=== PATIENT | female | born 1930 | race Caucasian/White ===

== ENCOUNTER 2022-04-22 18:11 | Inpatient (IN) ==
--- NOTE | 2022-04-22 18:16 | Emergency Department Note ---
Impression & Plan Syncope, Fall, Dehydration ED Provider Note NAME: ROSA HERNANDEZ AGE: 89 SEX: F : 1930 ARRIVES VIA: Ambulance INFORMANT: Patient, ED PROVIDER(S): Braxton Murillo MD Chief Complaint: Fall HPI: Patient was seen earlier today due to concern for syncope. The patient does have a known history of dementia and syncope. Patient was reportedly at sabianism today was standing and had a sit down. Patient did have 2 brief syncopal events did receive some glucose by bystander in case her sugar had been low. Patient's BSG was normal. The patient had no current complaints at the time of being seen here today. The patient did have blood work completed and had cardiac enzyme testing. Patient's EKG shows frequent PVCs and bigeminy. Patient did receive IV fluids. Patient reportedly had a fall after using the bathroom. Patient did not have any syncope LOC or head strike. Patient does not take any blood thinning medications. ROS: See HPI for pertinent positives and negatives. A total of 10 systems were reviewed and otherwise negative. Past medical history: See below Surgical history: See below Social history: See below Physical Exam: GENERAL: NAD, wearing a mask, non-toxic. EYE EXAM: Normal conjunctiva. PERRL, no anisocoria and EOM's grossly intact w/o pain. NECK: Supple, no nuchal rigidity, no adenopathy, non-tender. No signs of meningismus. FROM of the neck with good chin to chest and neck extension. No stridor. LUNGS: Clear to auscultation. Normal chest wall mechanics. HEART: NSR, no MRG. ABDOMEN: Abdomen soft, non-tender, normo-active bowel sounds, no masses, no rebound or guarding. BACK: No CVA TTP. SKIN: No rashes and no bruising. UPPER EXTREMITIES: Upper extremities are grossly normal. No TTP or obvious deformity. LOWER EXTREMITIES: Grossly normal, no edema. No TTP or obvious deformity. NEURO EXAM: A&O x3, cranial nerves II-XII grossly intact, normal speech, moves all 4 extremities. Differential diagnoses: Vasovagal event, dehydration, infection, hypoglycemia, electrolyte abnormalities, cardiac sources, intracerebral event, pulmonary embolism, seizure, toxicologic, neurologic, as well as other pathologies. Course: Patient was seen and evaluated the bedside. Full history physical exam was performed. EKG interpreted by me Sinus with occasional PVCs. Rate of 65, normal QRS, normal axis. No obvious ST elevations. Imaging Studies: See Below Cardiac monitoring: An order was placed for continuous cardiac monitoring. The monitor shows a rate of 67 with sinus rhythm. MDM: Patient was seen due to concern for episode of syncope. I did call and speak with the patient's daughter Robson states that upon returning home she was feeling quite well eating a sandwich had gone to the bathroom and subsequently was staring and did not seem to be awake or alert for approximately 5 seconds in duration. No vomiting and no head strike. Given that the patient has had 3 episodes today believe the patient would benefit from inpatient treatments and telemetry. I did speak the on-call hospitalist Dr. Lizama and the patient was admitted to the medicine service. I did review the patient's prior blood work which was completed earlier today. The patient has normal white count H&H and platelet count. The patient's kidney function did show some mild prerenal azotemia but the BUN and creatinine were normal. Kidney function was grossly unremarkable with 2 negative troponins and urinalysis was negative in addition to COVID. Patient was ordered campus monitor IV fluids saline lock and pulse ox. Past Med/Surg History Medical History DM2 (diabetes mellitus, type 2) Hearing deficit HTN (hypertension) Neuropathy Sensorineural hearing loss (SNHL) of both ears Surgical History History of cholecystectomy History of dilation and curettage History of hysterectomy History of tonsillectomy Family History Son Hypertension Daughter Asthma Other No family history of adverse response to anesthesia No family history of bleeding disorder Social History Smoking Status: Never smoker Hx Alcohol Use: No Hx Substance Use: No Preferred Language: Colombian marital status: / Current Living Situation: Alone and Family current occupational status: retired Feels Safe at Home: Yes Allergies Allergies Allergy/AdvReac Type Severity Reaction Status Date / Time atorvastatin AdvReac Muscle Pain Verified 04/22/22 19:32 ezetimibe [From Zetia] AdvReac Muscle Pain Verified 04/22/22 19:33 sulfates Allergy Hives Uncoded 04/22/22 19:32 Home Meds Home Medications Medication Instructions Recorded Confirmed amlodipine 10 mg tablet 10 mg PO HS 03/13/22 04/22/22 aspirin 81 mg tablet,delayed 81 mg PO DAILY 03/13/22 04/22/22 release (Adult Low Dose Aspirin) benazepril 20 1 tab PO DAILY 03/13/22 04/22/22 mg-hydrochlorothiazide 12.5 mg tablet cetirizine 10 mg tablet (Zyrtec) 10 mg PO DAILY 03/13/22 04/22/22 gabapentin 100 mg capsule 100 mg PO QPM 03/13/22 04/22/22 glipizide 2.5 mg tablet, extended 2.5 mg PO DAILY 03/13/22 04/22/22 release 24 hr donepezil 5 mg tablet 5 mg PO DAILY 04/22/22 04/22/22 multivitamin with minerals-folic 1 tab PO DAILY 04/22/22 04/22/22 acid 200 mcg chewable tablet (Adult Multivitamin Gummies) Results & Data (ED) Vital Signs Vital Signs - 24 hr 04/22/22 17:50 04/22/22 19:03 04/22/22 18:41 Temperature 36.5 C Temperature Source Oral Pulse Rate 82 65 Pulse Rate [Brachial] 67 Pulse Rate from SpO2 Sensor Pulse Rhythm Regular Pulse Rhythm [Brachial] Regular Pulse Strength Normal Pulse Strength [Brachial] Normal Respiratory Rate 20 19 Respiratory Effort / Characteristics Non-Labored Spontaneous Non-Labored Spontaneous Respiratory Depth Normal Normal Respiratory Pattern Regular Blood Pressure 158/82 H Blood Pressure [Left Arm] 150/66 H Blood Pressure Mean 107 Blood Pressure Mean [Left Arm] 94 Pulse Oximetry 97 98 99 Oxygen Delivery Method Room Air Room Air Sepsis Recent Fever Within 48 Hours No Sepsis New/Unexplained Change in Mental Status No Sepsis Action Taken by Nursing No Action Required 04/22/22 18:41 04/22/22 18:50 04/22/22 19:00 Temperature Temperature Source Pulse Rate 67 66 Pulse Rate [Brachial] Pulse Rate from SpO2 Sensor 69 66 Pulse Rhythm Pulse Rhythm [Brachial] Pulse Strength Pulse Strength [Brachial] Respiratory Rate 16 14 Respiratory Effort / Characteristics Respiratory Depth Respiratory Pattern Blood Pressure 150/66 H Blood Pressure [Left Arm] Blood Pressure Mean 94 Blood Pressure Mean [Left Arm] Pulse Oximetry 99 99 Oxygen Delivery Method Sepsis Recent Fever Within 48 Hours Sepsis New/Unexplained Change in Mental Status Sepsis Action Taken by Nursing 04/22/22 19:00 04/22/22 19:10 04/22/22 19:20 Temperature Temperature Source Pulse Rate 67 69 82 Pulse Rate [Brachial] Pulse Rate from SpO2 Sensor 69 68 70 Pulse Rhythm Pulse Rhythm [Brachial] Pulse Strength Pulse Strength [Brachial] Respiratory Rate 16 21 18 Respiratory Effort / Characteristics Respiratory Depth Respiratory Pattern Blood Pressure Blood Pressure [Left Arm] Blood Pressure Mean Blood Pressure Mean [Left Arm] Pulse Oximetry 93 99 99 Oxygen Delivery Method Sepsis Recent Fever Within 48 Hours Sepsis New/Unexplained Change in Mental Status Sepsis Action Taken by Nursing 04/22/22 19:30 04/22/22 19:32 04/22/22 19:32 Temperature Temperature Source Pulse Rate 68 68 Pulse Rate [Brachial] Pulse Rate from SpO2 Sensor 35 L Pulse Rhythm Pulse Rhythm [Brachial] Pulse Strength Pulse Strength [Brachial] Respiratory Rate 23 17 Respiratory Effort / Characteristics Respiratory Depth Respiratory Pattern Blood Pressure 168/69 H Blood Pressure [Left Arm] Blood Pressure Mean 102 Blood Pressure Mean [Left Arm] Pulse Oximetry 98 Oxygen Delivery Method Sepsis Recent Fever Within 48 Hours Sepsis New/Unexplained Change in Mental Status Sepsis Action Taken by Nursing 04/22/22 19:40 04/22/22 19:50 04/22/22 20:00 Temperature Temperature Source Pulse Rate 66 64 Pulse Rate [Brachial] Pulse Rate from SpO2 Sensor 68 66 Pulse Rhythm Pulse Rhythm [Brachial] Pulse Strength Pulse Strength [Brachial] Respiratory Rate 19 13 Respiratory Effort / Characteristics Respiratory Depth Respiratory Pattern Blood Pressure 160/78 H Blood Pressure [Left Arm] Blood Pressure Mean 105 Blood Pressure Mean [Left Arm] Pulse Oximetry 99 98 Oxygen Delivery Method Sepsis Recent Fever Within 48 Hours Sepsis New/Unexplained Change in Mental Status Sepsis Action Taken by Nursing 04/22/22 20:00 04/22/22 20:10 04/22/22 20:20 Temperature Temperature Source Pulse Rate 64 69 72 Pulse Rate [Brachial] Pulse Rate from SpO2 Sensor 69 72 Pulse Rhythm Pulse Rhythm [Brachial] Pulse Strength Pulse Strength [Brachial] Respiratory Rate 20 17 16 Respiratory Effort / Characteristics Respiratory Depth Respiratory Pattern Blood Pressure Blood Pressure [Left Arm] Blood Pressure Mean Blood Pressure Mean [Left Arm] Pulse Oximetry 98 99 Oxygen Delivery Method Sepsis Recent Fever Within 48 Hours Sepsis New/Unexplained Change in Mental Status Sepsis Action Taken by Nursing 04/22/22 20:30 04/22/22 20:30 04/22/22 20:40 Temperature Temperature Source Pulse Rate 69 71 Pulse Rate [Brachial] Pulse Rate from SpO2 Sensor 58 L 73 Pulse Rhythm Pulse Rhythm [Brachial] Pulse Strength Pulse Strength [Brachial] Respiratory Rate 16 16 Respiratory Effort / Characteristics Respiratory Depth Respiratory Pattern Blood Pressure 162/82 H Blood Pressure [Left Arm] Blood Pressure Mean 108 Blood Pressure Mean [Left Arm] Pulse Oximetry 97 99 Oxygen Delivery Method Sepsis Recent Fever Within 48 Hours Sepsis New/Unexplained Change in Mental Status Sepsis Action Taken by Nursing 04/22/22 20:50 04/22/22 21:00 04/22/22 21:00 Temperature Temperature Source Pulse Rate 71 70 Pulse Rate [Brachial] Pulse Rate from SpO2 Sensor Pulse Rhythm Pulse Rhythm [Brachial] Pulse Strength Pulse Strength [Brachial] Respiratory Rate 18 21 Respiratory Effort / Characteristics Respiratory Depth Respiratory Pattern Blood Pressure 156/98 H Blood Pressure [Left Arm] Blood Pressure Mean 117 Blood Pressure Mean [Left Arm] Pulse Oximetry Oxygen Delivery Method Sepsis Recent Fever Within 48 Hours Sepsis New/Unexplained Change in Mental Status Sepsis Action Taken by Nursing 04/22/22 21:10 04/22/22 21:20 04/22/22 21:30 Temperature Temperature Source Pulse Rate 72 70 Pulse Rate [Brachial] Pulse Rate from SpO2 Sensor Pulse Rhythm Pulse Rhythm [Brachial] Pulse Strength Pulse Strength [Brachial] Respiratory Rate 23 20 Respiratory Effort / Characteristics Respiratory Depth Respiratory Pattern Blood Pressure 137/69 Blood Pressure [Left Arm] Blood Pressure Mean 91 Blood Pressure Mean [Left Arm] Pulse Oximetry Oxygen Delivery Method Sepsis Recent Fever Within 48 Hours Sepsis New/Unexplained Change in Mental Status Sepsis Action Taken by Nursing 04/22/22 21:30 04/22/22 21:40 Temperature Temperature Source Pulse Rate 69 65 Pulse Rate [Brachial] Pulse Rate from SpO2 Sensor Pulse Rhythm Pulse Rhythm [Brachial] Pulse Strength Pulse Strength [Brachial] Respiratory Rate 23 21 Respiratory Effort / Characteristics Respiratory Depth Respiratory Pattern Blood Pressure Blood Pressure [Left Arm] Blood Pressure Mean Blood Pressure Mean [Left Arm] Pulse Oximetry Oxygen Delivery Method Sepsis Recent Fever Within 48 Hours Sepsis New/Unexplained Change in Mental Status Sepsis Action Taken by Group Home Medications Current Medication List: was personally reviewed by me Laboratory Data Attestation: I reviewed the patient's lab results. I reviewed the blood work from earlier today as per the MDM. Administered Medications Discontinued Medications Sodium Chloride (Nss 1000ml) 1,000 mls @ 999 mls/hr IV .[id number] ONE Stop: 04/22/22 19:45 Last Infusion: 04/22/22 21:00 Dose: 0 mls/hr Documented By: Admin: 04/22/22 19:47 Dose: 999 mls/hr Documented By: YOLY Discharge Plan Visit Data Chief Complaint: Fall Stated Complaint: syncope ED Provider: Braxton Murillo Discharge Problem: Syncope, Fall, Dehydration Forms Stand Alone Forms: [facility] Prescriptions Prescriptions: No Action glipizide 2.5 mg tablet extended release 24 hr 2.5 mg PO DAILY aspirin [Adult Low Dose Aspirin] 81 mg tablet,delayed release (DR/EC) 81 mg PO DAILY cetirizine [Zyrtec] 10 mg tablet 10 mg PO DAILY benazepril-hydrochlorothiazide 20-12.5 mg tablet 1 tab PO DAILY gabapentin 100 mg capsule 100 mg PO QPM amlodipine 10 mg tablet 10 mg PO HS donepezil 5 mg tablet 5 mg PO DAILY Adult Multivitamin Gummies 200 mcg Tablet,Chewable 1 tab PO DAILY Referrals Referrals: Sandi Saxena MD [Primary Care Provider] -
[2022-04-22] MEDS ORDERED: SODIUM CHLORIDE 0.9% 1000ML 1,000 ML IV ONE (18:45)
--- NOTE | 2022-04-22 20:42 | History & Physical Report ---
Date of Service April 22, 2022 Assessment & Plan (1) Syncope: Plan: Recurrent events Rule out orthostasis, arrhythmia ? Secondary to new Aricept Rx for dementia ? autonomic neuropathy from DM (hemoglobin A1c noted to be 9.4 last November 2021) Rule out seizures given history of CVA lacunar infarct on CT as per records), cardiac pathology (history murmur as per records) hypertension, slightly elevated hyperlipidemia/statin intolerance, CVA, DM2 on oral medications, better controlled with recent outpatient hemoglobin A1c of 7.6 last February 2022 Impacted cerumen, left IBD, in remission OBS Medical telemetry Check orthostatic vitals TTE, EEG for recurrent syncope work-up Hold Aricept for now [Will request AM provider to contact patient's neurologist (Dr. Hughes) to to give patient update and seek disposition regarding Aricept Rx. Patient may need to be weaned off Aricept pending Neurology recommendations.) Basal bolus insulin, ISS BG goal 1 10-1 40, carb count coverage Ceruminolytic course for left ear followed by removal at PCPs office on follow- up DVT prophylaxis per Lovenox subcu Full code as per daughter/POA, Travis Irizarry. She requests updates from providers through [phone]. Text document was generated using [employer] voice recognition software. It may contain grammatical or spelling errors. Kindly contact undersigned for clarification of any documentation item in question. History of Present Illness Chief Complaint: Recurrent syncope Primary Care Provider: Sandi Saxena MD History obtained from patient, family, and records. Limited history from patient secondary to hearing impairment. Medical history significant for hypertension, hyperlipidemia/statin intolerance, CVA, DM2 on oral medications, ulcerative colitis as per records, dementia. Patient moved in with her daughter to live with her daughter in [place] from [place] last November 2021. According to daughter, patient has had recurrent syncopal events for about 10 years now. Nothing found on testing as per daughter. Last attack was a few years ago. Patient started on Aricept by [facility] cognitive and behavioral neurologist 2 weeks ago to slow cognitive decline from dementia. Daytime confusion noted shortly after starting medication. Neurologist updated by patient daughter via online communication. 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 Patient noted to be shaking and sweaty as per family. Patient eyes rolled backwards. No tongue biting or incontinence noted. Physicians present at the restorationist attended to patient. Blood sugar noted to be 100s upon arrival of EMS. Patient brought to ER for evaluation but subsequently discharged with negative work-up. Patient told to follow-up with PCP. Another syncopal event witnessed by daughter at home. No seizures or incontinence. Patient looked glassy eyed. Episode lasted about 5 seconds. Patient denies chest pain, shortness of breath, unusual headache symptoms upon regaining consciousness. Patient not hearing well as per daughter. Patient brought to the ER for evaluation. 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 Allergies Allergy/AdvReac Type Severity Reaction Status Date / Time atorvastatin AdvReac Muscle Pain Verified 04/22/22 19:32 ezetimibe [From Zetia] AdvReac Muscle Pain Verified 04/22/22 19:33 sulfates Allergy Hives Uncoded 04/22/22 19:32 Home Medications Medication Instructions Recorded Confirmed Type amlodipine 10 mg tablet 10 mg PO HS 03/13/22 04/22/22 History aspirin 81 mg tablet,delayed 81 mg PO DAILY 03/13/22 04/22/22 History release (Adult Low Dose Aspirin) benazepril 20 1 tab PO DAILY 03/13/22 04/22/22 History mg-hydrochlorothiazide 12.5 mg tablet cetirizine 10 mg tablet (Zyrtec) 10 mg PO DAILY 03/13/22 04/22/22 History gabapentin 100 mg capsule 100 mg PO QPM 03/13/22 04/22/22 History glipizide 2.5 mg tablet, extended 2.5 mg PO DAILY 03/13/22 04/22/22 History release 24 hr donepezil 5 mg tablet 5 mg PO DAILY 04/22/22 04/22/22 History multivitamin with minerals-folic 1 tab PO DAILY 04/22/22 04/22/22 History acid 200 mcg chewable tablet (Adult Multivitamin Gummies) Past Med/Surg History Medical History DM2 (diabetes mellitus, type 2) Hearing deficit HTN (hypertension) Neuropathy Sensorineural hearing loss (SNHL) of both ears Surgical History History of cholecystectomy History of dilation and curettage History of hysterectomy History of tonsillectomy Family History Son Hypertension Daughter Asthma Other No family history of adverse response to anesthesia No family history of bleeding disorder Social History Smoking Status: Never smoker Cigarettes Per Day: does not use; Second Hand Exposure: No; Do You Dip or Chew Tobacco: No; Tobacco Cessation Education Requested by Patient: No Hx Alcohol Use: No Hx Substance Use: No Preferred Language: Ethiopian Communication Ability: Effective Communication Ability Comment: patient is able to speak Ethiopian Sponge Diver Required: No Beliefs That Will Affect Care: Adventism marital status: / Current Living Situation: Family Current Living Situation Comment: lives with Travis peres current occupational status: retired Feels Safe at Home: Yes Safety Concerns: Feels Safe At This Time Assistive Devices: None Review of Systems Review of Systems: Could not be reliably obtained secondary to hearing impairment Physical Exam Physical Exam: GENERAL: Comfortable, oriented to place, hard of hearing, no respiratory distress SKIN: Normal color, warm HEENT: [place] palpebral conjunctivae, no ptosis, dry buccal mucosa; intact TM on right ear, impacted cerumen within left ear canal NECK : Supple, no tenderness CHEST : CTA, no tenderness HEART : RRR, no obvious murmurs ABDOMEN: Some distention, nontender EXTREMITIES : No LE swelling/tenderness, no other conspicuous deformities noted NEUROLOGIC : Oriented to place, no facial asymmetry, gait and stance not assessed Results & Data Results & Data ([facility]) Vital Signs (Past 12 Hours) Vital Signs Temp Pulse Pulse Resp BP BP Pulse Ox 04/22/22 18:41 65 99 04/22/22 19:03 67 19 150/66 H 98 04/22/22 17:50 36.5 C 82 20 158/82 H 97 O2 Del Method 04/22/22 18:41 04/22/22 19:03 Room Air 04/22/22 17:50 Room Air Laboratory Results 04/22/22 04/22/22 04/22/22 Range/Units 11:40 12:30 12:31 WBC 8.07 (4.8-10.8) K/ul RBC 4.77 (3.93-5.22) M/uL Hgb 14.0 (12.0-16.0) g/dl Hct 42.4 (34.1-44.9) % MCV 88.9 (80.0-100.0) fL MCH 29.4 (25.0-34.0) pg MCHC 33.0 (32.0-36.0) g/dL RDW Std Deviation 42.3 (36.4-46.3) fL RDW Coeff of Ebony 13.0 (11.5-14.5) % Plt Count 172 (130-400) K/uL MPV 9.3 L (9.4-12.3) fL Immature Gran % (Auto) 0.6 % Neut % (Auto) 73.5 % Lymph % (Auto) 18.3 % [place] % (Auto) 5.8 % Eos % (Auto) 1.4 % Baso % (Auto) 0.4 % Neut # (Auto) 5.93 (1.4-6.5) K/uL Lymph # (Auto) 1.48 (1.2-3.4) K/uL [place] # (Auto) 0.47 (0.24-0.82) K/uL Eos # (Auto) 0.11 (0-0.50) K/uL Baso # (Auto) 0.03 (0-0.2) K/uL Immature Gran # (Auto) 0.05 H (0.00-0.02) K/uL Sodium (136-145) mmol/L Potassium (3.5-5.1) mmol/L Chloride (98-107) mmol/L Carbon Dioxide (21-32) mmol/L Anion Gap (3-11) BUN (6-23) mg/dl Creatinine (0.6-1.2) mg/dl Est Cr Clr Drug Dosing ml/min Est GFR ( Amer) ml/min Est GFR (Non-Af Amer) ml/min BUN/Creatinine Ratio (10-20) Glucose (70-99(Fasting)) mg/dl POC Glucose 147 H (70-99) mg/dl Calcium (8.5-10.1) mg/dl Magnesium (1.7-2.4) mg/dl Total Bilirubin (0.2-1.0) mg/dl AST (13-39) U/L ALT (7-52) U/L Alkaline Phosphatase (34-104) U/L Troponin I High Sens (0-14) pg/ml Total Protein (6.0-8.3) gm/dl Albumin (3.4-5.0) gm/dl Globulin (2.5-4.0) gm/dl Albumin/Globulin Ratio (0.9-2) TSH (0.300-4.500) uIu/ml Prolactin ng/ml Urine Color Urine Appearance (Clear) Urine pH (4.5-7.5) Ur Specific [place] (1.000-1.030) Urine Protein (Negative) Urine Glucose (UA) (Negative) Urine Ketones (Negative) Urine Blood (Negative) Urine Nitrite (Negative) Urine Bilirubin (Negative) Urine Urobilinogen (Negative) Ur Leukocyte Esterase (Negative) SARS-CoV-2, RNA, NAAT NEGATIVE (NEGATIVE) 04/22/22 04/22/22 04/22/22 Range/Units 12:31 12:31 12:31 WBC (4.8-10.8) K/ul RBC (3.93-5.22) M/uL Hgb (12.0-16.0) g/dl Hct (34.1-44.9) % MCV (80.0-100.0) fL MCH (25.0-34.0) pg MCHC (32.0-36.0) g/dL RDW Std Deviation (36.4-46.3) fL RDW Coeff of Ebony (11.5-14.5) % Plt CountB (130-400) K/uL MPV (9.4-12.3) fL Immature Gran % (Auto) % Neut % (Auto) % Lymph % (Auto) % [place] % (Auto) % Eos % (Auto) B % Baso % (Auto) % Neut # (Auto) (1.4-6.5) K/uL Lymph # (Auto) (1.2-3.4) K/uL [place] # (Auto) (0.24-0.82) K/uL Eos # (Auto) (0-0.50) K/uL Baso # (Auto) (0-0.2) K/uL Immature Gran # (Auto) (0.00-0.02) K/uL Sodium 139 (136-145) mmol/L Potassium 4.0 (3.5-5.1) mmol/L Chloride 102 (98-107) mmol/L Carbon Dioxide 26 (21-32) mmol/L Anion Gap 11 (3-11) BUN 23 (6-23) mg/dl Creatinine 1.13 (0.6-1.2) mg/dl Est Cr Clr Drug Dosing 29.1 ml/min Est GFR ( Amer) 49.9 ml/min Est GFR (Non-Af Amer) 43.1 ml/min BUN/Creatinine Ratio 20.4 H (10-20) Glucose 150 H (70-99(Fasting)) mg/dl POC Glucose (70-99) mg/dl Calcium 10.0 (8.5-10.1) mg/dl Magnesium 2.3 (1.7-2.4) mg/dl Total Bilirubin 0.9 (0.2-1.0) mg/dl AST 14 (13-39) U/L ALT 13 (7-52) U/L Alkaline Phosphatase 60 (34-104) U/L Troponin I High Sens 5.1 (0-14) pg/ml Total Protein 7.4 (6.0-8.3) gm/dl Albumin 4.6 (3.4-5.0) gm/dl Globulin 2.8 (2.5-4.0) gm/dl Albumin/Globulin Ratio 1.6 (0.9-2) TSH 2.179 (0.300-4.500) uIu/ml ProlactinB 26.16 ng/ml Urine Color Urine Appearance (Clear) Urine pH (4.5-7.5) Ur Specific [place] (1.000-1.030) Urine Protein (Negative) Urine Glucose (UA) (Negative) Urine Ketones (Negative) Urine Blood (Negative) Urine Nitrite (Negative) Urine Bilirubin (Negative) Urine Urobilinogen (Negative) Ur Leukocyte Esterase (Negative) SARS-CoV-2, RNA, NAAT (NEGATIVE) 04/22/22 04/22/22 Range/Units 14:15 15:16 WBC (4.8-10.8) K/ul RBC (3.93-5.22) M/uL Hgb (12.0-16.0) g/dl Hct (34.1-44.9) % MCV (80.0-100.0) fL MCH (25.0-34.0) pg MCHC (32.0-36.0) g/dL RDW Std Deviation (36.4-46.3) fL RDW Coeff of VarB (11.5-14.5) % Plt Count (130-400) K/uL MPV (9.4-12.3) fL Immature Gran % (Auto)B % Neut % (Auto) % Lymph % (Auto) % [place] % (Auto) % Eos % (Auto) % Baso % (Auto) % Neut # (Auto) (1.4-6.5) K/uL Lymph # (Auto)B (1.2-3.4) K/uL [place] # (Auto) (0.24-0.82) K/uL Eos # (Auto) (0-0.50) K/uL Baso # (Auto) (0-0.2) K/uL Immature Gran # (Auto) (0.00-0.02) K/uL Sodium (136-145) mmol/L Potassium (3.5-5.1) mmol/L Chloride (98-107) mmol/L Carbon Dioxide (21-32) mmol/L Anion Gap (3-11) BUN (6-23) mg/dl Creatinine (0.6-1.2) mg/dl Est Cr Clr Drug Dosing ml/min Est GFR ( Amer) ml/min Est GFR (Non-Af Amer) ml/min BUN/Creatinine Ratio (10-20) Glucose (70-99(Fasting)) mg/dl POC Glucose (70-99) mg/dl Calcium (8.5-10.1) mg/dl Magnesium (1.7-2.4) mg/dl Total Bilirubin (0.2-1.0) mg/dl D AST (13-39) U/L ALT (7-52) U/L Alkaline Phosphatase (34-104) U/L Troponin I High Sens 4.9 (0-14) pg/ml Total Protein (6.0-8.3) gm/dl Albumin (3.4-5.0) gm/dl Globulin (2.5-4.0) gm/dl Albumin/Globulin Ratio (0.9-2) TSH (0.300-4.500) uIu/ml Prolactin ng/ml Urine Color Yellow Urine Appearance Clear (Clear) Urine pH 7.5 (4.5-7.5) Ur Specific [place] 1.016 (1.000-1.030) Urine Protein Negative (Negative) Urine Glucose (UA) Negative (Negative) Urine Ketones Negative (Negative) Urine Blood Negative (Negative) Urine Nitrite Negative (Negative) Urine Bilirubin Negative (Negative) Urine Urobilinogen Negative (Negative) Ur Leukocyte Esterase Negative (Negative) SARS-CoV-2, RNA, NAAT (NEGATIVE) Diagnostic Findings CT head: MPRESSION: 1. No acute intracranial abnormality or calvarial fracture. 2. Small left anterior frontal scalp contusion. EKG as per my interpretation :Rate 65, NSR, LAD, LAFB, T wave abnormalities inferior leads, PVCs (1) Syncope Syncope type: unspecified Qualified Code(s): R55 - Syncope and collapse
[2022-04-22] MEDS ORDERED: ACETAMINOPHEN 325 MG TAB PO PRN (22:46)
[2022-04-22] MEDS ORDERED: GLUCAGON FOR INJ 1 MG VIAL SQ PRN (22:46)
[2022-04-22] MEDS ORDERED: GLUCOSE 10 TAB/TUBE PO PRN (22:46)
[2022-04-22] MEDS ORDERED: GLUCOSE 40% GEL 15 GM TUBE PO PRN (22:46)
[2022-04-22] MEDS ORDERED: DEXTROSE 50% 50 ML SYRINGE IV PRN (22:46)
[2022-04-22] MEDS ORDERED: CARBOHYDRATES FOR HYPOGLYCEMIA PO PRN (22:46)
[2022-04-23] MEDS: GABAPENTIN 100 MG CAP PO SCH ×2 (00:30→22:48)
[2022-04-23] MEDS: HEPARIN SOD 5,000 UNIT/0.5 ML VIAL SQ SCH ×4 (00:47→22:49)
[2022-04-23] MEDS: INSULIN ASPART PER UNIT SC SCH ×5 (00:47→20:53)
[2022-04-23] MEDS: CARBAMIDE PEROXIDE 6.5% 15 ML BTL OTL SCH ×3 (02:45→22:47)
[2022-04-23 06:56] LABS: Basophils # (auto) 0.04 K/uL (0-0.2); Basophils % (auto) 0.6 %; Eosinophils # (auto) 0.12 K/uL (0-0.50); Eosinophils % (auto) 1.7 %; Hematocrit (blood only) 36.7 % (34.1-44.9); Hemoglobin 12.4 g/dl (12.0-16.0); Immature Granulocytes # (auto) 0.01 K/uL (0.00-0.02); Immature Granulocytes % (auto) 0.1 %; Lymphocytes # (auto) 2.02 K/uL (1.2-3.4); Lymphocytes % (auto) 29.4 %; Mean Corpuscular Hemoglobin 29.4 pg (25.0-34.0); Mean Corpuscular Hgb Conc 33.8 g/dL (32.0-36.0); Mean Platelet Volume 9.6 fL (9.4-12.3); Monocytes # (auto) 0.56 K/uL (0.24-0.82); Monocytes % (auto) 8.2 %; Neutrophils # (auto) 4.12 K/uL (1.4-6.5); Platelet Count 181 K/uL (130-400); RDW Standard Deviation 41.3 fL (36.4-46.3); Red Blood Count 4.22 M/uL (3.93-5.22); White Blood Count 6.87 K/ul (4.8-10.8)
[2022-04-23 07:54] LABS: BUN Creatinine Ratio 21.2 (10-20); Calcium 9.1 mg/dl (8.5-10.1); Creatinine Clr Calc Pharmacy 33.4 ml/min; Est GFR (African American) 58.6 ml/min; Est GFR (Non-African American) 50.5 ml/min; Potassium 3.5 mmol/L (3.5-5.1)
[2022-04-23] MEDS ORDERED: PERFLUTREN LIPID MICROSPHERE (DEFINITY) IV ONE (08:48)
[2022-04-23] MEDS: LANTUS PER UNIT CHARGE SQ SCH (09:01)
[2022-04-23] MEDS: ASPIRIN 81 MG ECTAB PO SCH (09:02)
[2022-04-23] MEDS: lisinopril 5 MG TAB PO SCH (09:02)
[2022-04-23] MEDS: MULTIVITAMIN TAB PO SCH (09:02)
[2022-04-23] MEDS: CETIRIZINE HCL 10 MG TABLET PO SCH (09:02)
--- NOTE | 2022-04-23 10:25 | Electrocardiogram Report ---
Test Reason : Blood Pressure : / mmHG Vent. Rate : 065 BPM Atrial Rate : 065 BPM P-R Int : 168 ms QRS Dur : 092 ms QT Int : 452 ms P-R-T Axes : 039 -03 031 degrees QTc Int : 470 ms Poor data quality, interpretation may be adversely affected Sinus rhythm with occasional Premature ventricular complexes Poor R wave progression, consider anterior WI vs. lead placement vs. LVH Abnormal ECG When compared with ECG of 22-APR-2022 11:33, (unconfirmed) Previous ECG has undetermined rhythm, needs review Confirmed by Nimesh Rebollar ([id number]) on 04/23/2022 10:25:40 AM Referred By: REFERRED SELF Confirmed By:Nimesh Rebollar
--- NOTE | 2022-04-23 12:44 | Electroencephalogram ---
EEG Procedure Note Date of Service April 23, 2022 Start / End Times Start Time: 742 End Time: 802 Referring Physician Naveed Lizama MD History 89-year-old history of recurrent syncope. Home Medication List Medication Instructions Recorded Confirmed Type amlodipine 10 mg tablet 10 mg PO HS 03/13/22 04/22/22 History aspirin 81 mg tablet,delayed 81 mg PO DAILY 03/13/22 04/22/22 History release (Adult Low Dose Aspirin) benazepril 20 1 tab PO DAILY 03/13/22 04/22/22 History mg-hydrochlorothiazide 12.5 mg tablet cetirizine 10 mg tablet (Zyrtec) 10 mg PO DAILY 03/13/22 04/22/22 History gabapentin 100 mg capsule 100 mg PO QPM 03/13/22 04/22/22 History glipizide 2.5 mg tablet, extended 2.5 mg PO DAILY 03/13/22 04/22/22 History release 24 hr donepezil 5 mg tablet 5 mg PO DAILY 04/22/22 04/22/22 History multivitamin with minerals-folic 1 tab PO DAILY 04/22/22 04/22/22 History acid 200 mcg chewable tablet (Adult Multivitamin Gummies) Inpatient Medication List Aspirin (Aspirin 81 Mg Ectab) 81 mg PO DAILY JOSSY Stop: 05/23/22 08:59 Last Admin: 04/23/22 09:02 Dose: 81 mg Documented By: [id number] Carbamide Peroxide (Carbamide Peroxide 6.5% 15 Ml Btl) 5 drops OTL BID JOSSY Stop: 04/27/22 00:49 Last Admin: 04/23/22 09:02 Dose: 5 drops Documented By: [id number] Admin: 04/23/22 02:45 Dose: 5 drops Documented By: RODNEY Cetirizine HCl (Cetirizine Hcl 10 Mg Tablet) 10 mg PO DAILY JOSSY Stop: 05/23/22 08:59 Last Admin: 04/23/22 09:02 Dose: 10 mg Documented By: [id number] Gabapentin (Gabapentin 100 Mg Cap) 100 mg PO QPM JOSSY Stop: 05/22/22 22:45 Last Admin: 04/23/22 00:30 Dose: Not Given Documented By: RODNEY Heparin Sodium (Porcine) (Heparin Sod 5,000 Unit/0.5 Ml Vial) 5,000 units SQ Q8 JOSSY Stop: 05/22/22 22:45 Last Admin: 04/23/22 09:02 Dose: 5,000 units Documented By: [id number] Admin: 04/23/22 00:47 Dose: 5,000 units Documented By: RODNEY Insulin Aspart (Insulin Aspart Per Unit) 0 units SC ACHS JOSSY Stop: 05/22/22 22:45 Last Admin: 04/23/22 09:00 Dose: 1 units Documented By: [id number] Co-signed By: BETHEL Admin: 04/23/22 00:47 Dose: 3 units Documented By: RODNEY Co-signed By: POLLY Insulin Glargine (Lantus Per Unit Charge) 5 units SQ DAILY JOSSY Stop: 05/23/22 08:59 Last Admin: 04/23/22 09:01 Dose: 5 units Documented By: [id number] Co-signed By: BETHEL Lisinopril (Lisinopril 5 Mg Tab) 5 mg PO QAM JOSSY Stop: 05/23/22 08:59 Last Admin: 04/23/22 09:02 Dose: 5 mg Documented By: [id number] Multivitamins (Multivitamin Tab) 1 tab PO DAILY JOSSY Stop: 05/23/22 08:59 Last Admin: 04/23/22 09:02 Dose: 1 tab Documented By: [id number] Discontinued Medications Sodium Chloride (Nss 1000ml) 1,000 mls @ 999 mls/hr IV .Q1H1M ONE Stop: 04/22/22 19:45 Last Infusion: 04/22/22 21:00 Dose: 0 mls/hr Documented By: Admin: 04/22/22 19:47 Dose: 999 mls/hr Documented By: YOLY Perflutren Lipid Microsphere (Perflutren Lipid Microsphere (Definity)) 2 ml IV ONCE ONE Stop: 04/23/22 08:49 Last Admin: 04/23/22 08:49 Dose: 2 ml Documented By: SHARRON Description This is a 21 electrode EEG with a single channel dedicated to limited EKG. The electrodes were placed in accordance with the International 10-20 system. Interpretation The predominant background activity consists of a fairly well modulated 8 Hz activity, of up to 30 mV in amplitude,seen symmetrically distributed over the posterior head regions bilaterally. This activity attenuates nicely with eye- opening and other alerting procedures. Photic stimulation was performed and elicited no change in the background activity and no abnormal responses were seen. Hyperventilation was not per formed. A minimal amount of muscle and movement artifact activity contaminated the recording and did not hinder interpretation to any significant degree. Throughout the waking portion of the recording, no focal abnormalities, abnormal slow activity, or potentially epileptogenic discharges are seen. The patient entered the drowsy state and brief periods of stage II sleep with no further activation. In summary, this EEG was normal during wakefulness and sleep. No focal abnormalities, potentially epileptogenic discharges, or abnormal slow activity was seen. Clinical Correlation The abscence of potentially epileptogenic activity does not exclude a seizure disorder, since interictally, EEGs can be normal. Clinical correlation is required. [facility] EEG Procedure Codes Indication for Procedure (1) Syncope: Neurology Neurology: [id number] EEG include record awake & sleepy
--- NOTE | 2022-04-23 13:03 | Magnetic Resonance Report ---
MRI OF THE BRAIN WITHOUT CONTRAST CLINICAL HISTORY: possible seizure, r/o cva COMPARISON STUDY: Head CT April 22, 2022. TECHNIQUE: Utilizing a 1.5 Missy magnet and dedicated coil, multiplanar, multiecho imaging of the bra in was performed without IV contrast. FINDINGS: There are no foci of restricted diffusion to suggest acute infarct. No acute intracranial h emorrhage, midline shift or mass effect is present. Moderate atrophy is noted. Ventricular system is unremarkable. Basal cisterns are patent. There are no extra axial collections. No intracranial masses identified on this unenhanced exam. White matter T2 hyperintense foci suggest small vessel disease. There are bilateral mastoid effusions. No suspicious calvarial marrow replacement. Orbits are unremar kable on unenhanced exam. IMPRESSION: 1. No acute intracranial findings. 2. Moderate atrophy and small vessel disease. 3. Bilateral mastoid effusions. ACT 112: Negative or not required by law. Electronically signed by: Roberto Perez M.D. 04/23/2022 1:02 PM
--- NOTE | 2022-04-23 16:57 | Hospitalist Progress Note ---
Date of Service April 23, 2022 Assessment & Plan (1) Syncope: Plan: Recurrent -History of dementia per outpatient neurology records -Possible autonomic neuropathy secondary to underlying Parkinson disease diabetes type 2 ? Secondary to new Aricept Rx for dementia Rule out seizures given history of CVA lacunar infarct on CT as per records) --Orthostatic vital signs: Negative -- Brain MRI: No acute CVA, small vessel disease EEG: Pending Echocardiogram: EF 65 to 70%, moderate concentric LVH, no significant aortic valvular stenosis, grade 1 diastolic dysfunction --Hold Aricept --We will consult neurology PT and OT evaluation hypertension --Hold amlodipine, benazepril hydrochlorothiazide for today Monitor BP hyperlipidemia/statin intolerance, CVA, DM2 on oral medications, better controlled with recent outpatient hemoglobin A1c of 7.6 last February 2022 Impacted cerumen, left IBD, in remission DVT prophylaxis -- Heparin SC Full code as per daughter/POA, Ms. Travis Irizarry. She requests updates from providers through [phone]. plan of care discussed with patient and her daughter at the bedside Travis in detail and at length all questions answered They are understanding, agreeable, comfortable with the plan of care Disposition PT and OT evaluation Patient's daughter would like her mother to return to their home when medically stable Declines rehab or penitentiary facility Admission and Anticipated Discharge Date Admission Date: April 22, 2022 Subjective Follow-up for recurrent syncope etc. Discussed case with patient's daughter Travis at bedside More information obtained Apparently patient has been having recurrent syncopal episodes over the past couple of years Back in January the patient had a syncopal episode, fell and had forehead laceration requiring stitches It usually happens when patient is at [employer], or outdoor family gatherings Per patient's grand daughter's account, patient was standing at [employer], singing, felt weak, sat down And was noted to be unresponsive for a couple of seconds, with stiffening and upward rolling of eyeballs Patient awakened immediately No incontinence, tongue biting Patient seen resting in bed, not in distress Seems to be confused and anxious Patient reassured She denies headache, dizziness, blurring of vision, pain in her body, chest pain, shortness of breath, dumping, nausea vomiting, fevers or chills next Review of Systems Review of Systems: all noted and negative except for above Physical Exam Physical Exam: General- oriented x 1, not in distress, speaks in sentences with no effort or accessory muscle use Appears anxious Head- atraumatic Eyes- PERRL, EOMI, anicteric ENT- oropharynx clear Neck- supple, no JVD, no adenopathy, no thyromegaly; carotids +2/2, no bruits appreciated Lungs- clear to auscultation bilaterally, no rales/wheezes Heart- normal rate, regular rhythm; no murmur, no gallop, no rub appreciated Abdomen- normal bowel sounds, nondistended, soft, nontender, no masses or hepatosplenomegaly Extremities- no pretibial edema, no calf tenderness; peripheral pulses intact Neuro- alert, oriented x 3; CN 2-12 grossly intact; motor 5/5 bilaterally;sensation 100% on all extremities; no other gross focal neurologic deficits Skin- warm & dry Results & Data Results & Data ([facility]) Vital Signs (Past 12 Hours) Vital Signs Temp Pulse Pulse Resp BP BP Pulse Ox 04/23/22 16:31 36.7 C 67 20 143/72 H 97 04/23/22 16:07 72 04/23/22 12:29 58 L 04/23/22 08:00 34.7 C L 70 16 138/74 96 O2 Del Method 04/23/22 16:31 Room Air 04/23/22 16:07 04/23/22 12:29 04/23/22 08:00 Room Air all noted and reviewed including below (1) Syncope Syncope type: unspecified Qualified Code(s): R55 - Syncope and collapse
[2022-04-24] MEDS: HEPARIN SOD 5,000 UNIT/0.5 ML VIAL SQ SCH ×2 (05:29→15:02)
[2022-04-24] MEDS: LANTUS PER UNIT CHARGE SQ SCH (08:32)
[2022-04-24] MEDS: INSULIN ASPART PER UNIT SC SCH ×2 (08:32→12:08)
[2022-04-24] MEDS: MULTIVITAMIN TAB PO SCH (08:34)
[2022-04-24] MEDS: lisinopril 5 MG TAB PO SCH (08:34)
[2022-04-24] MEDS: ASPIRIN 81 MG ECTAB PO SCH (08:34)
[2022-04-24] MEDS: CETIRIZINE HCL 10 MG TABLET PO SCH (08:34)
[2022-04-24] MEDS: CARBAMIDE PEROXIDE 6.5% 15 ML BTL OTL SCH (08:34)
--- NOTE | 2022-04-24 13:59 | Hospitalist Progress Note ---
Date of Service April 24, 2022 Assessment & Plan (1) Syncope: Plan: Recurrent Syncope -History of dementia per outpatient neurology records -Possible autonomic neuropathy secondary to underlying Parkinson disease, diabetes type 2 ? Secondary to new Aricept Rx for dementia --Orthostatic vital signs: Negative -- Brain MRI: No acute CVA, small vessel disease EEG: In summary, this EEG was normal during wakefulness and sleep. No focal abnormalities, potentially epileptogenic discharges, or abnormal slow activity was seen. Echocardiogram: EF 65 to 70%, moderate concentric LVH, no significant aortic valvular stenosis, grade 1 diastolic dysfunction --Hold Aricept -- Discussed with neurologist Dr. Jurado, feels recurrent syncopal episodes are secondary to underlying autonomic neuropathy PT and OT evaluation: Recommend rehab --Patient usually on amlodipine 10 mg, benazepril/HCTZ /.5 Patient most likely has underlying orthostasis Amlodipine, benazepril/HCTZ changed to lisinopril 5 mg p.o. daily to prevent hypotension Please monitor blood pressure closely including orthostatic vital signs Compression stockings may also help Follow-up with [facility] neurologist in 2 weeks hypertension -- Management per above hyperlipidemia/statin intolerance, CVA DM2 on oral medications, better controlled with recent outpatient hemoglobin A1c of 7.6 last February 2022 --Continue glipizide Impacted cerumen, left IBD, in remission DVT prophylaxis -- Heparin SC given Full code as per daughter/POA, Ms. Travis Irizarry. plan of care discussed with patient and her daughter Travis over the phone in detail and at length all questions answered They are understanding, agreeable, comfortable with the plan of care Disposition Transition to [facility] Continue PT OT Follow-up with PCP and neurologist once discharged from [facility] Admission and Anticipated Discharge Date Admission Date: April 24, 2022 Subjective ff up for recurrent syncope, etc. Seen resting in bed, comfortable, not in distress, awake and alert, mostly confused States she feels fine overall No headache, dizziness, change in vision, nausea vomiting no chest pain, dyspnea, palpitations, dizziness Denies pain in her body No other symptoms Review of Systems Review of Systems: all noted and negative except for above Physical Exam Physical Exam: General- oriented x 1, not in distress, speaks in sentences with no effort or accessory muscle use Eyes- anicteric Neck- no JVD Lungs- clear breath sounds bilaterally, no rales/wheezes Heart- normal rate, regular rhythm; no murmurs Abdomen- normal bowel sounds, nondistended, soft, nontender Extremities- no pretibial edema, no calf tenderness Neuro- alert, oriented x1; no new gross focal neurologic deficits Skin- warm & dry Results & Data Results & Data ([facility]) Vital Signs (Past 12 Hours) Vital Signs Temp Pulse Pulse Resp BP BP Pulse Ox 04/24/22 13:33 36.7 C 68 18 166/70 H 97 04/24/22 08:00 04/24/22 07:03 52 L 04/24/22 05:05 36.5 C 56 L 18 135/77 94 04/24/22 02:18 62 O2 Del Method 04/24/22 13:33 Room Air 04/24/22 08:00 Room Air 04/24/22 07:03 04/24/22 05:05 Room Air 04/24/22 02:18 all noted and reviewed including below (1) Syncope Syncope type: unspecified Qualified Code(s): R55 - Syncope and collapse
[2022-04-24] MEDS ORDERED: lisinopril 5 MG TAB PO ONE (14:05)
--- NOTE | 2022-04-24 14:12 | Discharge Summary ---
Discharge Summary Date of Service April 24, 2022 Notes For Next Care Provider Please monitor blood pressure closely. Usual amlodipine 10 mg daily, benazepril/HCTZ 20/12.5 mg p.o. daily changed to lisinopril 10 mg p.o. daily. Aricept discontinued. Please refer to accompanying hospital discharge summary for further details. Medication Changes From Visit Per above Admission HPI Per Admitting Provider History obtained from patient, family, and records. Limited history from patient secondary to hearing impairment. Medical history significant for hypertension, hyperlipidemia/statin intolerance, CVA, DM2 on oral medications, ulcerative colitis as per records, dementia. Patient moved in with her daughter to live with her daughter in [facility] [address] from [place] last November 2021. According to daughter, patient has had recurrent syncopal events for about 10 years now. Nothing found on testing as per daughter. Last attack was a few years ago. Patient started on Aricept by [facility] 2 weeks ago to slow cognitive decline from dementia. Daytime confusion noted shortly after starting medication. Neurologist updated by patient daughter via online communication. Patient was a local [employer] today attending [facility] when she was noted by grandchild to have transient unresponsiveness. Patient noted to be shaking and sweaty as per family. Patient eyes rolled backwards. No tongue biting or incontinence noted. Physicians present at the [employer] attended to patient. Blood sugar noted to be 100s upon arrival of EMS. Patient brought to ER for evaluation but subsequently discharged with negative work-up. Patient told to follow-up with PCP. Another syncopal event witnessed by daughter at home. No seizures or incontinence. Patient looked glassy eyed. Episode lasted about 5 seconds. Patient denies chest pain, shortness of breath, unusual headache symptoms upon regaining consciousness. Patient not hearing well as per daughter. Patient brought to the ER for evaluation. 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, current lives with daughter Admission Exam Per Admitting Provider GENERAL: Comfortable, oriented to place, hard of hearing, no respiratory distress SKIN: Normal color, warm HEENT: [place] palpebral conjunctivae, no ptosis, dry buccal mucosa; intact TM on right ear, impacted cerumen within left ear canal NECK : Supple, no tenderness CHEST : CTA, no tenderness HEART : RRR, no obvious murmurs ABDOMEN: Some distention, nontender EXTREMITIES : No LE swelling/tenderness, no other conspicuous deformities noted NEUROLOGIC : Oriented to place, no facial asymmetry, gait and stance not assessed Principal Dx & Hospital Course #1 = Principal Diagnosis (1) Syncope: Recurrent Syncope -History of dementia per outpatient neurology records -Possible autonomic neuropathy secondary to underlying Parkinson disease, diabetes type 2 ? Secondary to new Aricept Rx for dementia --Orthostatic vital signs: Negative -- Brain MRI: No acute CVA, small vessel disease EEG: In summary, this EEG was normal during wakefulness and sleep. No focal abnormalities, potentially epileptogenic discharges, or abnormal slow activity was seen. Echocardiogram: EF 65 to 70%, moderate concentric LVH, no significant aortic valvular stenosis, grade 1 diastolic dysfunction --Hold Aricept -- Discussed with neurologist Dr. Jurado, feels recurrent syncopal episodes are secondary to underlying autonomic neuropathy PT and OT evaluation: Recommend rehab --Patient usually on amlodipine 10 mg, benazepril/HCTZ 20/12.5 Patient most likely has underlying orthostasis Amlodipine, benazepril/HCTZ changed to lisinopril 5 mg p.o. daily to prevent hypotension Please monitor blood pressure closely including orthostatic vital signs Compression stockings may also help Follow-up with [facility] neurologist in 2 weeks hypertension -- Management per above hyperlipidemia/statin intolerance, CVA DM2 on oral medications, better controlled with recent outpatient hemoglobin A1c of 7.6 last February 2022 --Continue glipizide Impacted cerumen, left IBD, in remission DVT prophylaxis -- Heparin SC given Full code as per daughter/POA, Ms. Travis Irizarry. plan of care discussed with patient and her daughter Travis over the phone in detail and at length all questions answered They are understanding, agreeable, comfortable with the plan of care Disposition Transition to [facility] Continue PT OT Follow-up with PCP and neurologist once discharged from [facility] Plan General- oriented x 1, not in distress, speaks in sentences with no effort or accessory muscle use Eyes- anicteric Neck- no JVD Lungs- clear breath sounds bilaterally, no rales/wheezes Heart- normal rate, regular rhythm; no murmurs Abdomen- normal bowel sounds, nondistended, soft, nontender Extremities- no pretibial edema, no calf tenderness Neuro- alert, oriented x1; no new gross focal neurologic deficits Skin- warm & dry Discharge Exam General- oriented x 1, not in distress, speaks in sentences with no effort or accessory muscle use Eyes- anicteric Neck- no JVD Lungs- clear breath sounds bilaterally, no rales/wheezes Heart- normal rate, regular rhythm; no murmurs Abdomen- normal bowel sounds, nondistended, soft, nontender Extremities- no pretibial edema, no calf tenderness Neuro- alert, oriented x1; no new gross focal neurologic deficits Skin- warm & dry Updated Medication List Medication Instructions Recorded Confirmed Type amlodipine 10 mg tablet 10 mg PO HS 03/13/22 04/22/22 History aspirin 81 mg tablet,delayed 81 mg PO DAILY 03/13/22 04/22/22 History release (Adult Low Dose Aspirin) benazepril 20 1 tab PO DAILY 03/13/22 04/22/22 History mg-hydrochlorothiazide 12.5 mg tablet cetirizine 10 mg tablet (Zyrtec) 10 mg PO DAILY 03/13/22 04/22/22 History gabapentin 100 mg capsule 100 mg PO QPM 03/13/22 04/22/22 History glipizide 2.5 mg tablet, extended 2.5 mg PO DAILY 03/13/22 04/22/22 History release 24 hr donepezil 5 mg tablet 5 mg PO DAILY 04/22/22 04/22/22 History multivitamin with minerals-folic 1 tab PO DAILY 04/22/22 04/22/22 History acid 200 mcg chewable tablet (Adult Multivitamin Gummies) lisinopril 5 mg tablet (Zestril) 10 mg PO QAM 30 days #60 tabs 04/24/22 Rx Hospital Stay Data Consultations 04/22/22 19:06 ED Decision to Admit Stat Diagnostic Imagining Performed Brain MRI 04/23/22 09:15 MRI OF THE BRAIN WITHOUT CONTRAST CLINICAL HISTORY: possible seizure, r/o cva COMPARISON STUDY: Head CT April 22, 2022. TECHNIQUE: Utilizing a 1.5 Missy magnet and dedicated coil, multiplanar, multiecho imaging of the brain was performed without IV contrast. FINDINGS: There are no foci of restricted diffusion to suggest acute infarct. No acute intracranial hemorrhage, midline shift or mass effect is present. Moderate atrophy is noted. Ventricular system is unremarkable. Basal cisterns are patent. There are no extra axial collections. No intracranial masses identified on this unenhanced exam. White matter T2 hyperintense foci suggest small vessel disease. There are bilateral mastoid effusions. No suspicious calvarial marrow replacement. Orbits are unremarkable on unenhanced exam. IMPRESSION: 1. No acute intracranial findings. 2. Moderate atrophy and small vessel disease. 3. Bilateral mastoid effusions. ACT 112: Negative or not required by law. Electronically signed by: Roberto Perez M.D. 04/23/2022 1:02 PM Pending Results Patient Have Any Pending Studies at Discharge: No Discharge Instructions Given to Patient (Per Discharging Provider) Please monitor blood pressure closely. Usual amlodipine 10 mg daily, benazepril/HCTZ 20/12.5 mg p.o. daily changed to lisinopril 10 mg p.o. daily. Aricept discontinued. Please refer to accompanying hospital discharge summary for further details. Total Time Total Time Spent Total Time Spent (In Minutes): >30 minutes
[2022-04-25] MEDS ORDERED: Flu Vaccine-High Dose (Fluzone-HD) PF 65+ 0.7mL SYR IM ONE (08:00)
[2022-04-25] MEDS ORDERED: PNEUMOCOCCAL Polysaccharide Vaccine 25mcg/0.5mL vial/Syr IM ONE (08:00)
== END 2022-04-24 16:35 | DRG 74 ==
LOC: ED 18:11 → 2N 18:11